=== PATIENT | female | born 1950 | race Caucasian/White ===

== ENCOUNTER 2016-12-17 09:43 | Outpatient (CLI) | payer OTHER ==
--- NOTE | 2016-12-17 10:50 | DIAGNOSTIC IMAGING REPORT ---
PROCEDURE: US SOFT TISSUE THYR/NECK/HEAD INDICATION: GOITER TECHNIQUE: Drummond scale and color Doppler sonographic images of the thyroid gland were obtained. COMPARISON: None. FINDINGS: RIGHT LOBE: Right lobe of the thyroid gland is moderately enlarged 5.5 x 2.5 x 2.8 cm) with a 2.0 cm heterogeneous nodule in the mid pole, and two cystic areas in the lower pole (6 mm). LEFT LOBE: Left lobe of the thyroid gland is moderately enlarged (5.9 x 2.6 x 3.1 cm) with a heterogeneous multinodular appearance (largest nodular area 2.8 cm). ISTHMUS: The isthmus is mildly enlarged (7 mm) with a 6 mm cystic degenerating adenoma. IMPRESSION: 1. Moderately enlarged multinodular goiter (left greater than right). Findings are most compatible with multiple benign adenomas. Follow-up thyroid ultrasound in 6 months is recommended to confirm stability.
== END 2016-12-17 23:00 ==
LOC: US SRH 09:43
DX: D34 Benign neoplasm of thyroid gland (principal)